=== PATIENT | female | born 1970 | race Caucasian/White ===

== ENCOUNTER 2022-08-25 23:14 | Emergency (ER) | payer BC, OTHER ==
--- NOTE | 2022-08-25 23:45 | NUR ---
PATIENT CALLED TO TRIAGE NO RESPONSE PATIENT LEFT WITHOUT BEING SEEN BY DR. PHILLIPS. NO FURTHER CARE PROVIDED FOR PATIENT.
--- NOTE | 2022-08-25 23:55 | NUR ---
CALLED FOR THE SECOND TIME, NO RESPONSE
--- NOTE | 2022-08-26 | NUR ---
CALLED FOR THE THIRD TIME NO RESPONSE
[2022-08-26] MEDS ORDERED: CEPH-588 PO (06:00)
[2022-08-26] MEDS ORDERED: NAPR-54 PO (06:00)
== END 2022-08-25 23:45 | disposition left against medical advice (07) ==
LOC: MED 23:14
DX: M54.9 Dorsalgia, unspecified (principal); Z53.21 Procedure and treatment not carried out due to patient leaving prior to being seen by health care provider

== ENCOUNTER 2022-08-26 04:45 | Emergency (ER) | payer BC ==
[~2022-08-26] VITALS: Ht 170.2 cm; Wt 81.0 kg
[2022-08-26 04:53] VITALS: BP 115/74
--- NOTE | 2022-08-26 04:56 | NUR ---
PT TAKEN TO BED 4
--- NOTE | 2022-08-26 04:58 | NUR ---
PT AMB TO ER BED 4
[2022-08-26 05:29] LABS: APPEARANCE,URINE SL CLOUDY (CLEAR); BILIRUBIN,URINE NEGATIVE (NEGATIVE); BLOOD, URINE NEGATIVE (NEGATIVE); COLOR,URINE YELLOW (YELLOW); LEUKOCYTE ESTERASE ,URINE 2+ (NEGATIVE); NITRITE, URINE NEGATIVE (NEGATIVE); UGLUCOSE NEGATIVE (NEGATIVE)
--- NOTE | 2022-08-26 05:31 | NUR ---
Dr. Stephen examining patient.
[2022-08-26 05:42] LABS: RBC,URINE 0-5 /HPF (0-5)
[2022-08-26] MEDS ORDERED: KETOROLAC 30 MG/ML VIAL IM ONE (05:55)
[2022-08-26] MEDS ORDERED: CEPH-588 PO (06:00)
[2022-08-26] MEDS ORDERED: NAPR-54 PO (06:00)
--- NOTE | 2022-08-26 06:00 | NUR ---
ALL RESULTS BACK AND NOTED BY ERMD AND FOR D/C
[2022-08-26] MEDS ORDERED: IBUPROFEN 600 MG TAB PO ONE (06:05)
[2022-08-26 06:30] VITALS: BP 121/70
--- NOTE | 2022-08-26 06:30 | NUR ---
Patient discharged with v/s stable. Written and verbal after care instructions given and explained. Patient alert, oriented and verbalized understanding of instructions. Ambulatory with steady gait. All questions addressed prior to discharge. ID band removed. Patient advised to follow up with PMD. Rx of NAPROSYN, KEFLEX given. Patient educated on indication of medication including possible reaction and side effects. Opportunity to ask questions provided and answered.
== END 2022-08-26 06:30 | disposition home or self-care (01) ==
LOC: MED 04:45
DX: N39.0 Urinary tract infection, site not specified (principal); Z79.899 Other long term (current) drug therapy; Z98.890 Other specified postprocedural states
CPT/HCPCS: 81001; 81025; 87086; 99283; J1885

== ENCOUNTER 2023-03-11 18:27 | Emergency (ER) | payer BC ==
[~2023-03-11] VITALS: Ht 167.6 cm; Wt 82.1 kg
[~2023-03-11 18:27] MED LIST: CEPH-588 PO; NAPR-54 PO
[2023-03-11 18:46] VITALS: BP 134/80
[2023-03-11 19:23] LABS: BASOPHILS % (AUTO) 0.7 % (0.0-2.0); EOSINOPHILS # (AUTO) 0.1 K/uL (0-0.4); EOSINOPHILS % (AUTO) 0.8 % (0.0-4.0); HEMATOCRIT 34.4 % (36-48); HEMOGLOBIN 10.8 g/dL (12.0-16.0); LYMPHOCYTES # (AUTO) 2.9 K/uL (2.5-16.5); MEAN CORPUSCULAR HEMOGLOBIN 20 pg (27-31); MEAN CORPUSCULAR HGB CONC 32 g/dL (33-37); MONOCYTES # (AUTO) 0.5 K/uL (0.8-1.0); MONOCYTES % (AUTO) 7.2 % (1.7-9.3); NEUTROPHILS # (AUTO) 3.4 K/uL (1.8-7.7); NEUTROPHILS % (AUTO) 49.3 % (42.2-75.2); PLATELET COUNT (AUTO) 406 K/uL (140-450); RED BLOOD CELL COUNT(AUTO) 5.45 MIL/uL (4.20-5.40); RED CELL DISTRIBUTION WIDTH 19.1 % (11.6-13.7); WHITE BLOOD COUNT (AUTO) 6.8 K/uL (4.8-10.8)
[2023-03-11 19:49] LABS: ANION GAP 11.1 (8-16); CARBON DIOXIDE 28.1 mmol/L (21-32); POTASSIUM 4.2 mmol/L (3.5-5.1)
[2023-03-11 19:50] LABS: CREATININE 0.8 mg/dL (0.6-1.3); TOTAL BILIRUBIN 0.3 mg/dL (0.0-1.0)
[2023-03-11 19:51] LABS: ALBUMIN 3.8 g/dL (3.4-5.0)
[2023-03-11 20:26] LABS: APPEARANCE,URINE CLEAR (CLEAR); BILIRUBIN,URINE NEGATIVE (NEGATIVE); BLOOD, URINE NEGATIVE (NEGATIVE); COLOR,URINE YELLOW (YELLOW); LEUKOCYTE ESTERASE ,URINE NEGATIVE (NEGATIVE); NITRITE, URINE NEGATIVE (NEGATIVE); UGLUCOSE NEGATIVE (NEGATIVE)
[2023-03-11] MEDS ORDERED: LID5T TP (21:49)
[2023-03-11] MEDS ORDERED: IBUP-2213 PO (21:49)
--- NOTE | 2023-03-11 21:59 | NUR ---
Patient discharged with v/s stable. Written and verbal after care instructions given and explained. Patient alert, oriented and verbalized understanding of instructions. Ambulatory with steady gait. All questions addressed prior to discharge. ID band removed. Patient advised to follow up with PMD. Rx of IBUPROFEN, LIDOCAINE PATCH given. Patient educated on indication of medication including possible reaction and side effects. Opportunity to ask questions provided and answered.
== END 2023-03-11 21:59 | disposition home or self-care (01) ==
LOC: MED 18:27
DX: N83.202 Unspecified ovarian cyst, left side (principal); Z79.899 Other long term (current) drug therapy; Z98.890 Other specified postprocedural states
CPT/HCPCS: 36415; 80053; 81003; 81025; 85025; 99284